=== PATIENT | male | born 1990 | race Caucasian/White ===

== ENCOUNTER → 2018-12-09 15:44 | Outpatient (POV) | payer OTHER, SELFPAY | PROVIDERS: Visit Provider Dermatology | DX: Z00.00 Encounter for general adult medical examination without abnormal findings (principal) ==

== ENCOUNTER → 2019-12-04 07:37 | Outpatient (CLI) | payer OTHER, SELFPAY ==
[2019-12-04 08:33] LABS: Basophils % 0.8 % (0.1-2.0); Eosinophils # 0.1 K/mm3 (0.0-0.4); Eosinophils % 2.8 % (0.1-12.0); Hematocrit 50.9 % (42.0-52.0); Hemoglobin 17.6 g/dL (14.1-18.0); Lymphocytes # 1.1 K/mm3 (0.7-4.5); Lymphocytes % 32.2 % (10-50); Mean Corpuscular HGB Conc 34.6 g/dL (31.8-35.4); Mean Corpuscular Hemoglobin 31.3 pg (27.0-31.2); Mean Corpuscular Volume 90.5 fl (80-94); Mean Platelet Volume 8.6 fl (7.4-10.4); Monocytes # 0.2 K/mm3 (0.1-1.0); Monocytes % 5.5 % (1.7-9.3); Neutrophils # 1.9 K/mm3 (1.8-7.8); Neutrophils % 58.7 % (37.0-80.0); Platelet Count 211 K/mm3 (142-424); Red Blood Count 5.62 M/mm3 (4.60-6.20); Red Cell Distribution Width 13.1 % (11.5-17.5); White Blood Count 3.3 K/mm3 (4.8-10.8)
[2019-12-04 09:46] LABS: Chloride 105 mmol/L (98-107); Sodium 136 mmol/L (136-145)
[2019-12-04 09:47] LABS: Potassium 4.5 mmoL/L (3.5-5.1)
[2019-12-04 09:49] LABS: Alanine Aminotransferase 30 U/L (12-78); Albumin Level 4.6 g/dl (3.5-5.0); Albumin/Globulin Ratio 1.8 (1.1-1.8); Alkaline Phosphatase 59 U/L (38-126); Anion Gap 9.5 mEq/L (5-15); Aspartate Amino Transferase 32 U/L (17-59); Bilirubin,Total 1.3 mg/dl (0.2-1.3); Carbon Dioxide 26 mmol/L (22.0-30.0); Globulin 2.5 g/dL (1.3-3.2); Total Protein,Serum 7.1 g/dl (6.3-8.2)
[2019-12-04 09:50] LABS: Calcium 9.5 mg/dl (8.4-10.2); Glucose 86 mg/dl (74-100)
[2019-12-04 09:55] LABS: Blood Urea Nitrogen 24 mg/dl (9-20); Estimated Glomerular Filt Rate 89 ml/min (>60); GFR (African American) 108 ML/MIN (>60)
[2019-12-04 10:20] LABS: Hemoglobin A1C 4.8 % (4.0-6.0)
[2019-12-04 10:22] LABS: Thyroid Stimulating Hormone 1.59 uIU/mL (0.465-4.68)
[2019-12-04 11:20] LABS: 25-OH Vitamin D, Total 38.5 ng/mL (30-100)
[2019-12-05 09:21] LABS: Vitamin B12 563 pg/mL (232-1245)
== END ==
PROVIDERS: Visit Provider Nurse Practitioner
DX: Z00.00 Encounter for general adult medical examination without abnormal findings (principal)
CPT/HCPCS: 36415; 80053; 82306; 82607; 83036; 84443; 85025

== ENCOUNTER → 2020-05-03 07:53 | Outpatient (POV) | payer OTHER, SELFPAY | PROVIDERS: Visit Provider Dermatology | DX: L08.9 Local infection of the skin and subcutaneous tissue, unspecified (principal) | CPT/HCPCS: 87070; 87077; 87186; 87205 ==

== ENCOUNTER → 2020-06-24 16:15 | Outpatient (CLI) | payer OTHER, SELFPAY | PROVIDERS: PCP Nurse Practitioner Family; Visit Provider Family Medicine | DX: Z20.828 Contact with and (suspected) exposure to other viral communicable diseases (principal) | CPT/HCPCS: U0003 ==

== ENCOUNTER → 2021-04-28 09:15 | Outpatient (CLI) | payer OTHER, SELFPAY ==
[2021-04-28 12:08] LABS: Hemoglobin A1C 4.6 % (4.0-6.0)
== END ==
PROVIDERS: Visit Provider Nurse Practitioner
DX: Z83.3 Family history of diabetes mellitus (principal)
CPT/HCPCS: 36415; 83036

== ENCOUNTER → 2021-06-20 16:29 | Outpatient (CLI) | payer OTHER, SELFPAY ==
[2021-06-20 16:40] LABS: Coronavirus 19, PCR Not Detected (NotDetected); Influenza A, PCR Not Detected (NotDetected); Influenza B, PCR Not Detected (NotDetected)
== END ==
PROVIDERS: Visit Provider Nurse Practitioner
DX: Z20.822 Contact with and (suspected) exposure to COVID-19 (principal)
CPT/HCPCS: C9803; U0003; U0005

== ENCOUNTER → 2021-07-26 09:45 | Outpatient (CLI) | payer OTHER, SELFPAY ==
[2021-07-26 12:28] LABS: Iron 77 ug/dL (49-181)
[2021-07-26 12:44] LABS: Total Iron Binding Capacity 310 ug/dL (261-462)
[2021-07-26 13:17] LABS: Vitamin B12 575 pg/mL (239-931)
[2021-08-04 21:10] LABS: 1,25 Dihydroxy Vitamin D 32 pg/mL (.); 1,25-Dihydroxy, Vitamin D-2 <10 pg/mL (.); 1,25-Dihydroxy, Vitamin D-3 32 pg/mL (.)
== END ==
PROVIDERS: PCP Nurse Practitioner Family; Visit Provider Nurse Practitioner Psychiatric/Mental Health
DX: F41.1 Generalized anxiety disorder (principal); Z79.899 Other long term (current) drug therapy
CPT/HCPCS: 36415; 82607; 82652; 83540; 83550

== ENCOUNTER 2024-07-09 12:03 | Outpatient (CLI) | payer OTHER, SELFPAY ==
--- NOTE | 2024-07-09 12:12 | XR_ITS ---
FINAL REPORT CLINICAL HISTORY: foot pain FINDINGS: Right foot Three views were obtained. There is no fracture or dislocation. The joint spaces appear normal. No soft tissue abnormality is identified. IMPRESSION: No acute process. Reviewed, Interpreted and Dictated by Rubén Butler MD Transcribed by Tanya Pittman Authenticated and [facility]
--- NOTE | 2024-07-09 12:12 | XR_ITS ---
FINAL REPORT CLINICAL HISTORY: ankle pain FINDINGS: Right ankle Three views were obtained. There is no fracture or dislocation. The joint spaces appear normal. There is moderate soft tissue swelling over the lateral malleolus. The mortise is intact. IMPRESSION: Moderate soft tissue swelling without acute fracture. Reviewed, Interpreted and Dictated by Rubén Butler MD Transcribed by Tanya Pittman Authenticated and [facility]
== END 2024-07-09 23:59 | disposition home or self-care (01) ==
LOC: RAD 12:06
PROVIDERS: PCP Nurse Practitioner Family; Visit Provider Podiatrist
DX: M79.671 Pain in right foot (principal); M25.571 Pain in right ankle and joints of right foot
CPT/HCPCS: 73610; 73630